=== PATIENT | female | born 1950 | race Caucasian/White ===

== ENCOUNTER 2019-09-15 20:00 | Outpatient (REF) | payer MEDICARE, OTHER, SELFPAY ==
[2019-09-15 22:39] LABS: Calculated LDL 233 mg/dL (<100); Cholesterol 311 mg/dL (<200); HDL Cholesterol 43 mg/dL (40-60); Triglyceride 175 mg/dL (<150)
== END 2019-09-15 20:20 ==
LOC: NCHCN 20:00
PROVIDERS: PCP Nurse Practitioner Family; Visit Provider Registered Nurse
DX: E78.5 Hyperlipidemia, unspecified (principal); Z00.00 Encounter for general adult medical examination without abnormal findings
CPT/HCPCS: 80061

== ENCOUNTER 2021-01-16 12:00 | Outpatient (REF) | payer MEDICARE, OTHER, SELFPAY ==
[2021-01-16 15:14] LABS: HCT 43.7 % (36.0-46.0); HGB 14.1 g/dL (11.2-15.7); MCH 29.5 pg (27.0-33.0); MCHC 32.3 % (32.0-36.0); MCV 91.4 fL (80-95); MPV 11.7 fL (8.0-11.0); Platelet Count 277 10^3/uL (130-400); RBC 4.78 10^6/uL (3.93-5.22); RDW-SD 43.8 fL; WBC 5.35 10^3/uL (4.4-10.8)
[2021-01-16 15:47] LABS: Glucose 86 mg/dL (74-106); TSH 1.86 uIU/mL (0.36-3.74)
[2021-01-17 20:28] LABS: Calculated LDL 202 mg/dL (<100); Cholesterol 280 mg/dL (<200); HDL Cholesterol 42 mg/dL (40-60); Triglyceride 184 mg/dL (<150)
== END 2021-01-16 12:01 | disposition home or self-care (01) ==
LOC: NCHCN 12:00
PROVIDERS: PCP Nurse Practitioner Family; Visit Provider Registered Nurse
DX: Z00.00 Encounter for general adult medical examination without abnormal findings (principal); R53.83 Other fatigue; E78.5 Hyperlipidemia, unspecified
CPT/HCPCS: 80061; 82947; 85027; 84443

== ENCOUNTER 2024-08-04 11:24 | Outpatient (REF) | payer MEDICARE, SELFPAY ==
[2024-08-04 14:58] LABS: HCT 50.8 % (36.0-46.0); HGB 16.4 g/dL (11.2-15.7); MCH 29.7 pg (27.0-33.0); MCHC 32.3 % (32.0-36.0); MCV 92 fL (80-95); MPV 10.9 fL (8.0-11.0); Platelet Count 300 10^3/uL (130-400); RBC 5.52 10^6/uL (3.93-5.22); RDW 13.2 % (11.7-14.6); RDW-SD 45.3 fL; WBC 6.52 10^3/uL (4.4-10.8)
[2024-08-04 15:49] LABS: ALT 41 U/L (14-59); AST 31 U/L (15-37); Alkaline Phosphatase 95 U/L (46-116); Anion Gap 6.4 mmol/L (3-11); BUN 17 mg/dL (7-18); Bilirubin, Total 0.67 mg/dL (0.2-1.0); CO2 30.6 mmol/L (21.0-32.0); CREATININE 0.8 mg/dL (0.55-1.02); Calcium 9.6 mg/dL (8.5-10.1); Calculated LDL 231 mg/dL (<100); Chloride 106 mmol/L (98-107); Cholesterol 325 mg/dL (<200); Estimated GFR 77.75 (mL/min/1.73m2); Glucose 85 mg/dL (74-106); HDL Cholesterol 60 mg/dL (40-60); Sodium 143 mmol/L (136-145); TSH 3.55 uIU/mL (0.36-3.74); Total Protein 8.2 g/dL (6.4-8.2); Triglyceride 174 mg/dL (<150)
== END 2024-08-04 11:25 | disposition home or self-care (01) ==
LOC: NCHCN 11:24
PROVIDERS: PCP Nurse Practitioner Family; Visit Provider Family Medicine
DX: E78.5 Hyperlipidemia, unspecified (principal); R53.83 Other fatigue
CPT/HCPCS: 80053; 80061; 85027; 84443